=== PATIENT | female | born 1935 | race Caucasian/White ===

== ENCOUNTER 2017-02-08 14:25 | Emergency (ER) | payer MEDICARE, MEDICAID ==
[2017-02-08 14:30] VITALS: BP 142/83; TEMP 98
--- NOTE | 2017-02-08 15:14 | ED PDOC ---
Arrival/HPI - General Chief Complaint: Hip Pain Time Seen by Provider: 02/08/17 14:40 Past Medical History - Cardiac Hx Hypertension: Yes Allergies/Home Meds Allergies/Adverse Reactions: Allergies No Known Allergies Allergy (Verified 02/08/17 14:27) Physical Exam Vital Signs Temp Pulse Resp BP Pulse Ox 02/08/17 14:27 98.0 F 86 16 142/83 99 Medical Decision Making - RAD Interpretation Radiology Orders: 02/08/17 15:11 Hip Left [HIP MIN 2V W/ PELVIS LT] [RAD] Stat
--- NOTE | 2017-02-08 15:17 | ED PDOC ---
HPI: Trauma/Fall - HPI Time Seen by Provider: 02/08/17 14:40 Chief Complaint (Nursing): Hip Pain Chief Complaint (Provider): Hip Pain History Per: Patient History/Exam Limitations: no limitations Onset/Duration Of Symptoms: Days Injury Occurred (Timing): Hours Ago: Location Of Injury: Left: Hip Severity: Moderate Additional Complaint(s): Patient is a 82 year old female who presents to ED for left hip pain s/p fall today. Patient states that at 1300 she stumbled and fell in the bathroom, injuring left hip. Denies head, neck or back pain. Denies dizziness, nausea or vomiting. Past Medical History Reviewed: Historical Data, Nursing Documentation, Vital Signs Vital Signs: Last Vital Signs Temp 98.0 F 02/08/17 14:27 Pulse 86 02/08/17 14:27 Resp 16 02/08/17 14:27 BP 142/83 02/08/17 14:27 Pulse Ox 99 02/08/17 15:20 - Medical History PMH: Diabetes, HTN - Surgical History Surgical History: No Surg Hx - Family History Family History: States: No Known Family Hx - Living Arrangements Living Arrangements: With Family - Immunization History Hx Tetanus Toxoid Vaccination: No Hx Influenza Vaccination: No Hx Pneumococcal Vaccination: No - Home Medications Home Medications: Ambulatory Orders Medication Instructions Recorded Naproxen [Naprosyn] 500 mg PO Q12H #20 tab 02/08/17 - Allergies Allergies/Adverse Reactions: Allergies Allergy/AdvReac Type Severity Reaction Status Date / Time No Known Allergies Allergy Verified 02/08/17 14:27 Review of Systems ROS Statement: Except As Marked, All Systems Reviewed And Found Negative Constitutional: Negative for: Fever, Chills Eyes: Negative for: Vision Change Cardiovascular: Negative for: Chest Pain, Palpitations Respiratory: Negative for: Shortness of Breath Gastrointestinal: Negative for: Nausea, Vomiting, Abdominal Pain Musculoskeletal: Positive for: Other (left hip ). Negative for: Neck Pain, Back Pain Neurological: Negative for: Weakness, Numbness, Headache, Dizziness Physical Exam - Reviewed Nursing Documentation Reviewed: Yes Vital Signs Reviewed: Yes - Physical Exam Appears: Positive for: Non-toxic, No Acute Distress Head Exam: Positive for: ATRAUMATIC, NORMAL INSPECTION, NORMOCEPHALIC Skin: Positive for: Normal Color, Warm Eye Exam: Positive for: Normal appearance, PERRL Neck: Positive for: Normal, Painless ROM Cardiovascular/Chest: Positive for: Regular Rate, Rhythm, Chest Non Tender. Negative for: Murmur Respiratory: Positive for: Normal Breath Sounds. Negative for: Respiratory Distress Back: Positive for: Normal Inspection, Other (left hip: (-)deformity (+) mild tenderness (-)shortening or rotation,) Extremity: Positive for: Normal ROM. Negative for: Pedal Edema, Deformity Neurologic/Psych: Positive for: Alert, Oriented. Negative for: Motor/Sensory Deficits - ECG O2 Sat by Pulse Oximetry: 99 (RA) Pulse Ox Interpretation: Normal Medical Decision Making Medical Decision Making: Time: 1514 Initial impression: Hip injury r/o fracture Initial plan: -- Hip Xray Scribe Attestation: Documented by Angela Gómez acting as a scribe for Anmol Goode MD MD Scribe Attestation: All medical record entries made by the Scribe were at my direction and personally dictated by me. I have reviewed the chart and agree that the record accurately reflects my personal performance of the history, physical exam, medical decision making, and the department course for this patient. I have also personally directed, reviewed, and agree with the discharge instructions and disposition. Disposition - Clinical Impression Clinical Impression: Contusion of hip - Patient ED Disposition Is Patient to be Admitted: No Counseled Patient/Family Regarding: Studies Performed, Diagnosis, Need For Followup, Rx Given - Disposition Referrals: [facility] [Outside] Disposition: Routine/Home Disposition Time: 16:49 Condition: FAIR Prescriptions: Naproxen [Naprosyn] 500 mg PO Q12H #20 tab Instructions: Contusion in Adults (ED)
--- NOTE | 2017-02-08 16:46 | RAD ---
PROCEDURE: Left Hip X-ray Radiographs. HISTORY: Trauma COMPARISON: None. FINDINGS: BONES: The pelvic ring is intact. There is no acute fracture or bone destruction. Bone alignment and mineralization are normal. 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 There is also degenerative osteoarthrosis in the sacroiliac joints. SOFT TISSUES: Normal. OTHER FINDINGS: There is large amount of stool in the colon. IMPRESSION: No acute displaced fracture or dislocation. Please note occult fractures cannot be excluded on plain radiographs. If there is a persistent clinical concern, an MRI of the hip may be performed for further evaluation. . Constipation.
[2017-02-08 17:24] VITALS: PULSE 82; RESP 18; O2SAT 98
== END 2017-02-08 17:25 | disposition home or self-care (01) ==
LOC: H.ER 14:25
DX: S70.02XA Contusion of left hip, initial encounter (principal); W01.0XXA Fall on same level from slipping, tripping and stumbling without subsequent striking against object, initial encounter; Y92.002 Bathroom of unspecified non-institutional (private) residence as the place of occurrence of the external cause; E11.9 Type 2 diabetes mellitus without complications; I10 Essential (primary) hypertension; K59.00 Constipation, unspecified